=== PATIENT | female | born 2000 | race Two or more races ===

== ENCOUNTER 2023-11-20 18:56 | Emergency (ER) | payer SELFPAY ==
[~2023-11-20] VITALS: Ht 162.6 cm; Wt 84.1 kg
[2023-11-20 19:01] VITALS: BP 127/60; PULSE 80; RESP 18; TEMP 98.4
[2023-11-20] MEDS: KETOROLAC TROMETHAMINE 30 MG/ML VIAL IM ONE (21:43)
[2023-11-20] MEDS: LIDOCAINE 5% TRANSDERMAL PATCH TD ONE (21:44)
[2023-11-20] MEDS ORDERED: IBUP-1492 PO (22:08)
== END 2023-11-20 22:17 | disposition home or self-care (01) ==
LOC: EMS 19:00
DX: M54.50 Low back pain, unspecified (principal); Z98.890 Other specified postprocedural states
CPT/HCPCS: 99283; 72100; 96372; J1885